=== PATIENT | female | born 1990 | race American Indian/Alaskan Native ===

== ENCOUNTER 2020-08-05 06:24 | Emergency (ER) | payer SELFPAY ==
[2020-08-05 06:41] VITALS: BP 106/69
== END 2020-08-05 06:40 | disposition left against medical advice (07) ==
LOC: ED 06:24
DX: R06.02 Shortness of breath (principal); R06.2 Wheezing; Z53.21 Procedure and treatment not carried out due to patient leaving prior to being seen by health care provider